=== PATIENT | male | born 1945 | race Caucasian/White ===

== ENCOUNTER 2022-12-03 17:32 | Outpatient (CLI) | payer MEDICARE | END 2022-12-03 23:59 | disposition EMS.NT | LOC: EMS 17:32 | DX: S80.872A Other superficial bite, left lower leg, initial encounter (principal); W54.0XXA Bitten by dog, initial encounter; Y93.01 Activity, walking, marching and hiking ==

== ENCOUNTER 2022-12-05 11:10 | Outpatient (CLI) | payer MEDICARE ==
[2022-12-05 12:04] VITALS: BP 124/70
--- NOTE | 2022-12-05 12:04 | SLEEP CARE CONSULTATION ---
Information from patient questionnaire entered by Jesus Thomas. I have reviewed and concur with the information entered by Jesus Thomas. This document represents the service I personally performed and the decisions made by me, Shanna Pedraza ARNP. History of Present Illness Service Date and Time: 12/05/2022 1110 Reason for Visit: New patient Accompanied by: Spouse Chief Complaint: reports: Observed pauses in breathing Date of Onset: YRS Usual bedtime: 10PM Time it takes to fall asleep: 5AM Snores at night: Yes (infrequently) Observed to quit breathing while asleep: Yes Sleeps alone due to snoring: No Number of times waking at night: 1-2 Reasons for waking at night: reports: Bathroom. denies: Choking, Snoring, Gasping for air Toss, Turn, or Twitch while sleeping: Yes Recalls having dreams: Yes Usually gets out of bed at: 9-10 am Feels refreshed in the morning: No Morning headache: Yes (50% of time; goes away quickly in morning) Sleepy or fatigued during the day: Yes Ever fallen asleep while driving: No Takes day naps: No Dreams during day naps: No Prior sleep studies: No Additional HPI information: I had the pleasure of seeing JESSICA ESCOBEDO today regarding the possibility of him having a sleep disorder. His current complaint is observed pauses in breathing. He is accompanied by his who states he has Parkinson's and his neurologist wanted him to have a sleep study. She states he does snore but it is infrequently. He states he can fall asleep quickly and will get up during the night 1-2 times for the bathroom. He states he does not wake up feeling refreshed. He feels it is due to his health. He does have a brother who has sleep apnea and is on a machine. - Parasomnia Symptoms Ever been unable to move upon waking from sleep: No Walks in sleep: No Talks in sleep: Yes Ever acted out dreams in sleep: Yes Ever felt weak in the knees when startled or emotional: No Bothered by creepy, crawly, restless sensations in legs: No Problems with memory or concentration: Yes (both; words are hard to find) Subjective Initial [place] Sleepiness Scale score: 4 (11/08/22) Past Medical History Past Medical History: reports: Anxiety, Other (Stage 3 kidney disease; Parkinson's) Social History The patient's occupation is a RE. Patient is and lives in . Have you smoked in the past 12 months: No Alcohol use: Yes Alcohol amount and frequency: 8OZ TWICE WEEK Caffeine use: Yes Caffeine amount and frequency: 16OZ TWICE PER DAY Family History Family history of sleep disordered breathing: Yes Family Hx Sleep Apnea: Father: Snoring, Sibling: Sleep apnea - Treated Allergies and Home Medications Known drug allergies: Yes (PENICILLIN) Drug allergies reviewed: Yes Home medication list reviewed: Yes Allergy and home medication list: Medications: Lipitor Venlafaxine Tylenol Arthritis Review of Systems Weight gain over past 5 years: 5 Cardiovascular: denies: high blood pressure Gastrointestinal: reports: difficulty swallowing, abdominal pain Urinary: reports: urgency Neurological: denies: headaches Psychiatric: reports: anxiety Ear/Nose/Throat: reports: tonsillectomy, wisdom teeth removed Endocrine: denies: thyroid disease Musculoskeletal: reports: back pain Physical Exam Vital signs obtained and entered by: JESUS Núñez MA Blood Pressure: 124/70 (LEFT ARM ) Cuff size: regular Heart Rate: 65 O2 Saturation: 99 Height: 5 ft 11 in Weight: 184 lb 9.6 oz Body Mass Index: 25.7 BMI Classification: Overweight Neck circumference: 15.5 Mouth and throat: narrow oropharynx Soft palate: long Hard palate: arched Uvula: normal Uvula visualization: 25% Mallampati Class III Tongue: enlarged in size with teeth gonzalez on lateral edges Tonsils: absent bilaterally Neck: normal w/o lymphadenopathy or thyromegaly Heart: regular rate and rhythm Lungs: clear bilaterally Impression and Plan 1. Suspected Obstructive Sleep Apnea-Hypopnea Syndrome, as [previously diagnosed.][suggested by a history of ][loud and irregular snoring, ][observed cessation of breath while asleep, ][gasping or choking in sleep, ][morning headache, ][frequent awakening during the night, ][unrefreshed sleep, ][cognitive impairment, ][and excessive daytime sleepiness.] Narrow oropharynx and obesity are common predisposing factors for obstructive sleep apnea-hypopnea syndrome. I recommend proceeding to polysomnography to confirm the diagnosis and to assess severity. If the patient has significant sleep disordered breathing, a manual CPAP titration study will also be performed to find the optimal treatment pressure. I informed the patient of what the sleep studies involve and after some discussion, obtained agreement to proceed. The pathophysiology of obstructive sleep apnea-hypopnea syndrome was discussed with the patient and health risks of cardiovascular and cerebrovascular disease if not treated. [AAS brochure for obstructive sleep apnea-hypopnea syndrome given and reviewed.] Risks of drowsy driving discussed in detail and patient advised to avoid long distance driving and to boat puller at the first sign of drowsiness. Patient agreed to plan. [[facility] drowsy driving brochure given.] * Schedule polysomnography * Avoid long distance driving or driving when feeling sleepy. * Avoid alcohol, sedative and muscle relaxant around bedtime. * Attempt to lose weight. * Review instructions provided by trained office staff on how to prepare for the sleep study. * Return for follow-up after sleep study completed. Counseling Topics: Weight loss health impact Visit Type: In Office Other Participants: Spouse/Significant Other Time Spent with Patient (minutes): 31 Provider Statement: I spent 100% of the Face to Face Visit with the patient with greater than 50% spent counseling the patient and coordination of care.
== END 2022-12-05 11:11 | disposition home or self-care (01) ==
LOC: SC 11:10
PROVIDERS: ATTEND Nurse Practitioner Family
DX: R06.83 Snoring (principal); G47.8 Other sleep disorders; R06.81 Apnea, not elsewhere classified; E66.3 Overweight; Z68.25 Body mass index [BMI] 25.0-25.9, adult
CPT/HCPCS: 99203; G0463; 99212

== ENCOUNTER 2023-01-03 20:27 | Outpatient (CLI) | payer MEDICARE | END 2023-01-03 20:28 | disposition home or self-care (01) | LOC: SC 20:27 | PROVIDERS: ATTEND Nurse Practitioner Family | DX: R06.83 Snoring (principal); G47.8 Other sleep disorders; R06.81 Apnea, not elsewhere classified; R51.9 Headache, unspecified | CPT/HCPCS: 95810 ==

== ENCOUNTER 2023-01-30 12:49 | Outpatient (CLI) | payer MEDICARE ==
[2023-01-30 13:16] VITALS: BP 120/64
--- NOTE | 2023-01-30 13:16 | SLEEP CARE CONSULTATION ---
Information from patient questionnaire entered by Delfina Thomas. I have reviewed and concur with the information entered by Delfina Thomas. This document represents the service I personally performed and the decisions made by , Shanna Pedraza ARNP. History of Present Illness Service Date and Time: 01/30/2023 1249 Accompanied by: Spouse Initial [place] Sleepiness Scale score: 4 (11/08/22) Current [place] Sleepiness Scale score: 4 (01/30/23) Additional HPI information: JESSICA ESCOBEDO returns with spouse for follow up and results of the recently performed polysomnography. The patient was informed of the following findings: No significant sleep disordered breathing with an average AHI of 0.3 and az oxygen saturation of 92%. Patient had limited supine sleep during study. I explained the pathophysiology behind obstructive sleep apnea. Patient does not have sleep apnea and was advised how weight gain could increase the risk of developing sleep apnea in the future. I strongly encouraged the patient to lose weight. Patient has mild snoring. Snoring can be reduced by weight loss. Weight loss is best achieved with diet consult. Patient instructed to contact PCP for referral. Snoring can also be treated with an oral appliance from a dentist. Advised to check insurance coverage. In addition, an ENT evaluation can be do to see if other treatment is indicated. Patient does not drink alcohol. Patient was cautioned about risks of drowsy driving until sleepiness symptoms resolve. Patient denies drowsy driving. Sleep Study - Results Type of Sleep Study: Polysomnography (LAST SEEN 01/03/23) Prior sleep studies: No Polysomnography/Home Sleep Study results: IMPRESSION: The quality of the study is good. The patient had poor sleep efficiency due to several prolonged awakenings throughout the night. The sleep architecture was abnormal for sleep fragmentation and lack of slow wave sleep (N3). Respiratory monitoring showed no significant sleep disordered breathing (AHI = 0.3) associated or hypoxia (az oxygen saturation of 92%). The patient had very limited supine sleep (supine AHI = 0.0; non-supine = 0.34). Snore was infrequent and light in intensity. There was no significant periodic leg movement of sleep. Cardiac rhythm was normal sinus rhythm without significant arrhythmia. No abnormal behavior (parasomnia) observed during the night. Allergies and Home Medications Known drug allergies: Yes (penicillin) Drug allergies reviewed: Yes Home medication list reviewed: Yes (no changes) Allergy and home medication list: Allergies Penicillins Allergy (Verified 01/29/23 14:08) Review of Systems Review of systems same as previous: Yes (no changes) Physical Exam Vital signs obtained and entered by: DELFINA Núñez MA Blood Pressure: 120/64 (LEFT ARM) Cuff size: regular Heart Rate: 57 O2 Saturation: 99 Height: 5 ft 11 in Weight: 186 lb 12.8 oz Body Mass Index: 26.0 BMI Classification: Overweight Impression and Plan Snoring but no significant sleep disordered breathing. He did not spend a lot of time on his back during the study but he states he does normally sleep on his sides at night. Patient advised that often weight loss will reduce snoring as well as apnea risk. An oral appliance can also be used for snoring. This would require a dental consultation. Patient cautioned not to use other online appliances as can cause bite issues. A list of accredited dentists in [facility] and one local dentist who makes oral appliances is available in office if needed. Patient is advised to check if insurance will cover. An ENT consult can also be helpful to determine if any other treatment is an option. * Attempt to lose weight * Avoid alcohol consumption near bedtime * The patient is cautioned about driving until sleepiness is completely resolved. * Return as needed for follow up. Counseling Topics: Weight loss health impact Visit Type: In Office Time Spent with Patient (minutes): 20 Provider Statement: I spent 100% of the Face to Face Visit with the patient with greater than 50% spent counseling the patient and coordination of care.
== END 2023-01-30 12:50 | disposition home or self-care (01) ==
LOC: SC 12:49
PROVIDERS: ATTEND Nurse Practitioner Family
DX: R06.83 Snoring (principal); E66.3 Overweight; Z68.26 Body mass index [BMI] 26.0-26.9, adult
CPT/HCPCS: 99213; G0463; 99212